=== PATIENT | female | born 1945 | race Caucasian/White ===

== ENCOUNTER 2017-07-19 13:22 | Emergency (ER) | payer MEDICARE ==
[~2017-07-19 13:22] MED LIST: ADVAIR DISKUS IH; ARMOUR THYROID PO; ASPI-1197 PO; CHOL100040 PO; FEXO-59 PO; GABA-318 PO; HYDR-2534 PO; HYDR-3971 PO; LUBI24CA2 PO; POLY17PO4 PO; RALO60TA PO; UBID200C18 PO; ZOLP10TA2 PO
[2017-07-19 13:46] LABS: BASOPHILS % (AUTO) 0.3 % (0.0-5.0); EOSINOPHILS % (AUTO) 1.3 % (0.0-8.0); HEMATOCRIT 36.2 % (36-48); LYMPHOCYTES % (AUTO) 10.3 % (21.0-51.0); MEAN CORPUSCULAR HEMOGLOBIN 29.8 pg (27.0-33.0); MEAN CORPUSCULAR HGB CONC 33.8 g/dL (32.0-36.0); MEAN CORPUSCULAR VOLUME 88.3 fL (79-99); MONOCYTES % (AUTO) 7.6 % (3.0-13.0); NEUTROPHILS % (AUTO) 80.5 % (40.0-77.0); NUCLEATED RED BLOOD CELLS 0.1 % (0.0-0.19); PLATELET COUNT (AUTO) 389 K/uL (130-400); RED CELL DISTRIBUTION WIDTH 14.1 % (11.0-15.5); WHITE BLOOD COUNT (AUTO) 15.1 K/uL (4.8-10.8)
[2017-07-19 14:00] LABS: INR 0.93 (0.85-1.15); PARTIAL THROMBOPLASTIN TIME 25.1 SEC (26.3-35.5); PROTHROMBIN TIME 9.8 SEC (9.6-11.6)
[2017-07-19 14:02] LABS: POTASSIUM 3.8 mmol/L (3.5-5.1)
[2017-07-19] MEDS ORDERED: DIAZEPAM 5 MG TABLET ONE (14:10)
[2017-07-19 14:15] LABS: ALBUMIN 3.5 g/dL (3.5-5.0); BILIRUBIN,TOTAL 0.3 mg/dL (0.2-1.0); CREATINE KINASE MB 1.6 ng/mL (0.5-3.6)
[2017-07-19] MEDS ORDERED: ASPIRIN 325 MG TABLET ONE (14:15)
[2017-07-19] MEDS ORDERED: MORPHINE SULFATE 4 MG/1ML SYG ONE (15:47)
== END 2017-07-19 16:49 | disposition home or self-care (01) ==
LOC: EDH 13:22
DX: G89.29 Other chronic pain (principal); M25.511 Pain in right shoulder; R55 Syncope and collapse; R07.9 Chest pain, unspecified; E07.9 Disorder of thyroid, unspecified; M81.0 Age-related osteoporosis without current pathological fracture; Z88.1 Allergy status to other antibiotic agents
CPT/HCPCS: 36415; 70450; 71045; 80053; 82550; 82553; 83874; 83880; 84484; 85025; 85610; 85730; 93005; 94761; 96374; 99285; J2270

== ENCOUNTER → 2018-06-02 | Outpatient (CLI) | payer MEDICARE ==
[~2018-06-02] MED LIST changes: +CYCL10 PO; +DULO30CA51 PO; -FEXO-59 PO; -GABA-318 PO; +GABA600T10 PO; +SENN8.6T32 PO
== END | disposition home or self-care (01) ==
LOC: SHCH 11:49
PROVIDERS: ATTEND Internal Medicine Cardiovascular Disease
DX: I10 Essential (primary) hypertension (principal)
CPT/HCPCS: 93306

== ENCOUNTER → 2018-06-24 | Outpatient (CLI) | payer MEDICARE ==
[~2018-06-24] MED LIST changes: +ASPI-1181 PO; -ASPI-1197 PO; -CYCL10 PO; +CYCL10TA7 PO; +[UNRECOGNIZED DRUG - OTHER] IV
== END | disposition home or self-care (01) ==
LOC: OIH 13:51
PROVIDERS: ATTEND Neurological Surgery
DX: M47.812 Spondylosis without myelopathy or radiculopathy, cervical region (principal)
CPT/HCPCS: 72040

== ENCOUNTER → 2018-07-18 | Outpatient (CLI) | payer MEDICARE | END | disposition home or self-care (01) | LOC: OIH 08:08 | PROVIDERS: ATTEND Neurological Surgery | DX: M47.812 Spondylosis without myelopathy or radiculopathy, cervical region (principal); M43.22 Fusion of spine, cervical region; M85.88 Other specified disorders of bone density and structure, other site | CPT/HCPCS: 72040 ==

== ENCOUNTER 2020-09-07 06:31 | Day surgery (SDC) | payer MEDICARE ==
[2020-09-06 15:06] VITALS: BP 114/61
[~2020-09-07] VITALS: Ht 165.1 cm; Wt 60.4 kg
[2020-09-07] VITALS (14 sets, daily range): BP systolic 97–120; BP diastolic 53–73
[~2020-09-07 06:31] MED LIST changes: -ADVAIR DISKUS IH; -ARMOUR THYROID PO; -ASPI-1181 PO; +ASPI-1443 PO; -CHOL100040 PO; -DULO30CA51 PO; +DULO30CA52 PO; -HYDR-2534 PO; -LUBI24CA2 PO; -POLY17PO4 PO; -SENN8.6T32 PO; -[UNRECOGNIZED DRUG - OTHER] IV
[2020-09-07] MEDS ORDERED: LACTATED RINGERS 1000ML 1,000 ML IV ONE (06:57)
[2020-09-07] MEDS ORDERED: CEFAZOLIN SODIUM 1 GM VIAL ONE (06:57)
[2020-09-07] MEDS ORDERED: BUPIVACAINE/PF 0.5% 10ML VIAL ONE (07:00)
[2020-09-07] MEDS ORDERED: VANCOMYCIN 1GM+NS 250ML 250 ML IV ONE (07:56)
[2020-09-07] MEDS ORDERED: IOPAMIDOL 10 ML VIAL ONE (07:59)
[2020-09-07] MEDS ORDERED: MIDAZOLAM HCL 1 MG/ML 2ML VIAL ONE (08:04)
[2020-09-07] MEDS ORDERED: FENTANYL CITRATE PF 50 MCG/1 ML 2ML VIAL ONE (08:04)
[2020-09-07] MEDS ORDERED: PROPOFOL 10 MG/ML 20ML VIAL IV ONE (08:09)
== END 2020-09-07 10:00 | disposition home or self-care (01) ==
LOC: DAH 06:31
PROVIDERS: ATTEND Orthopaedic Surgery
DX: M16.12 Unilateral primary osteoarthritis, left hip (principal); Z20.822 Contact with and (suspected) exposure to COVID-19; M25.552 Pain in left hip; G89.29 Other chronic pain; G47.30 Sleep apnea, unspecified; E03.9 Hypothyroidism, unspecified; Z90.49 Acquired absence of other specified parts of digestive tract; Z98.890 Other specified postprocedural states; Z90.710 Acquired absence of both cervix and uterus; Z82.49 Family history of ischemic heart disease and other diseases of the circulatory system; Z88.8 Allergy status to other drugs, medicaments and biological substances; Z79.899 Other long term (current) drug therapy
CPT/HCPCS: 20610; 73503; 77002; 87426; A4215; A4222; A4223 ×2; A4663; A4930; J1030; J2250; J2704; J3010; J3370; J3490; J7120; Q9966; J0690

== ENCOUNTER 2020-09-20 16:21 | Emergency (ER) | payer MEDICARE ==
[2020-09-20 17:04] LABS: BASOPHILS % (AUTO) 0.5 % (0.0-5.0); EOSINOPHILS % (AUTO) 3.6 % (0.0-8.0); HEMATOCRIT 38.1 % (36-48); LYMPHOCYTES % (AUTO) 24.3 % (21.0-51.0); MEAN CORPUSCULAR HEMOGLOBIN 29.8 pg (27.0-33.0); MEAN CORPUSCULAR HGB CONC 32.8 g/dL (32.0-36.0); MEAN CORPUSCULAR VOLUME 90.9 fL (79-99); MONOCYTES % (AUTO) 9.3 % (3.0-13.0); NEUTROPHILS % (AUTO) 62.2 % (40.0-77.0); PLATELET COUNT (AUTO) 295 K/uL (130-400); RED BLOOD CELL COUNT(AUTO) 4.19 MIL/uL (4.00-5.50); RED CELL DISTRIBUTION WIDTH 13.3 % (11.0-15.5); WHITE BLOOD COUNT (AUTO) 7.5 K/uL (4.8-10.8)
[2020-09-20 17:15] LABS: CREATININE 0.9 mg/dL (0.5-1.5); POTASSIUM 3.5 mmol/L (3.5-5.1)
[2020-09-20 17:17] LABS: INR 0.98 (0.85-1.15); PROTHROMBIN TIME 10.7 SEC (9.6-11.6)
[2020-09-20 17:19] LABS: PARTIAL THROMBOPLASTIN TIME 26.7 SEC (26.3-35.5)
[2020-09-20 17:20] LABS: ALBUMIN 3.7 g/dL (3.5-5.0); BILIRUBIN,TOTAL 0.3 mg/dL (0.2-1.0); TOTAL PROTEIN, SERUM 7.3 g/dL (6.0-8.3)
[2020-09-20] MEDS ORDERED: MORPHINE SULFATE 4 MG/1ML SYG ONE (18:15)
== END 2020-09-20 19:44 | disposition home or self-care (01) ==
LOC: EDH 16:21
DX: S00.83XA Contusion of other part of head, initial encounter (principal); S50.12XA Contusion of left forearm, initial encounter; G89.29 Other chronic pain; M25.552 Pain in left hip; M79.7 Fibromyalgia; M81.0 Age-related osteoporosis without current pathological fracture; E07.9 Disorder of thyroid, unspecified; M19.90 Unspecified osteoarthritis, unspecified site; Z88.1 Allergy status to other antibiotic agents; Z90.49 Acquired absence of other specified parts of digestive tract; Z90.710 Acquired absence of both cervix and uterus; Z98.890 Other specified postprocedural states; W01.0XXA Fall on same level from slipping, tripping and stumbling without subsequent striking against object, initial encounter; Y93.89 Activity, other specified; Y92.89 Other specified places as the place of occurrence of the external cause; Y99.8 Other external cause status
CPT/HCPCS: 36415; 70450; 72100; 72125; 74176; 80053; 84484; 85025; 85610; 85730; 96372; 99285; J2270

== ENCOUNTER 2021-08-11 16:32 | Emergency (ER) | payer MEDICARE ==
[~2021-08-11] VITALS: Ht 165.1 cm; Wt 60.8 kg
[~2021-08-11 16:32] MED LIST changes: +CYCL-309 PO; -CYCL10TA7 PO
[2021-08-11 16:35] VITALS: BP 134/79
[2021-08-11] MEDS ORDERED: MORPHINE 4 MG SYG IM PRN (18:00)
[2021-08-11] MEDS ORDERED: CYCL10TA16 PO (19:15)
== END 2021-08-11 19:28 | disposition home or self-care (01) ==
LOC: EDH 16:32
DX: M25.511 Pain in right shoulder (principal); M19.90 Unspecified osteoarthritis, unspecified site; M41.9 Scoliosis, unspecified; M79.7 Fibromyalgia; Z79.82 Long term (current) use of aspirin; Z88.1 Allergy status to other antibiotic agents; Z88.2 Allergy status to sulfonamides; Z88.8 Allergy status to other drugs, medicaments and biological substances; Z90.49 Acquired absence of other specified parts of digestive tract; Z98.1 Arthrodesis status
CPT/HCPCS: 72040; 73030; 96372; 99284; J2270

== ENCOUNTER → 2021-08-22 | Outpatient (CLI) | payer MEDICARE ==
[~2021-08-22] MED LIST changes: +CYCL10TA16 PO
== END | disposition home or self-care (01) ==
LOC: RAH 10:50
PROVIDERS: ATTEND Orthopaedic Surgery
DX: M50.20 Other cervical disc displacement, unspecified cervical region (principal); Z98.1 Arthrodesis status
CPT/HCPCS: 72141

== ENCOUNTER 2021-09-16 04:32 | Emergency (ER) | payer MEDICARE ==
[~2021-09-16] VITALS: Ht 162.6 cm; Wt 61.2 kg
[~2021-09-16 04:32] MED LIST changes: +ASPI-1197 PO; +HYDR-4068 PO; +HYDR50TA PO; +LUBI24CA2 PO; +POLY17PO4 PO; +SENN8.6T32 PO; +THYR15TA PO; +UBID100C10 PO
[2021-09-16] MEDS ORDERED: KETOROLAC 15MG/ML VIAL (15MG/ML) IV ONE (05:00)
[2021-09-16] MEDS ORDERED: HYDROMORPHONE 1 MG INJ IVP ONE (05:00)
[2021-09-16 06:00] VITALS: BP 121/65
[2021-09-16] MEDS ORDERED: SOLU-MEDROL 40MG VIAL IVP ONE (06:00)
[2021-09-16] MEDS ORDERED: PRED20TA3 PO (06:13)
== END 2021-09-16 06:25 | disposition home or self-care (01) ==
LOC: EDH 04:32
DX: M54.12 Radiculopathy, cervical region (principal); E03.9 Hypothyroidism, unspecified; M19.90 Unspecified osteoarthritis, unspecified site; M79.7 Fibromyalgia; Z79.1 Long term (current) use of non-steroidal anti-inflammatories (NSAID); Z79.52 Long term (current) use of systemic steroids; Z88.1 Allergy status to other antibiotic agents; Z88.2 Allergy status to sulfonamides; Z88.8 Allergy status to other drugs, medicaments and biological substances; Z90.49 Acquired absence of other specified parts of digestive tract
CPT/HCPCS: 96374; 96375; 99284; J1170; J1885; J2920

== ENCOUNTER 2022-05-26 11:06 | Emergency (ER) | payer MEDICARE ==
[~2022-05-26] VITALS: Ht 162.6 cm; Wt 68.0 kg
[~2022-05-26 11:06] MED LIST changes: +PRED20TA3 PO
[2022-05-26] MEDS ORDERED: MORPHINE 4 MG SYG IM ONE (12:30)
[2022-05-26] MEDS ORDERED: KETOROLAC 60 MG VIAL (30MG/ML) IM ONE (12:30)
[2022-05-26] MEDS ORDERED: TETANUS/DIPHTHERIA TOXOID [ADULT] 0.5 ML VIAL IM ONE (12:30)
[2022-05-26] MEDS ORDERED: IBUP-2070 PO (13:53)
[2022-05-26] MEDS ORDERED: D-ME118S47 PO (13:53)
[2022-05-26 14:19] VITALS: BP 122/74
== END 2022-05-26 14:32 | disposition home or self-care (01) ==
LOC: EDH 11:06
DX: S80.01XA Contusion of right knee, initial encounter (principal); S80.02XA Contusion of left knee, initial encounter; S80.211A Abrasion, right knee, initial encounter; S80.212A Abrasion, left knee, initial encounter; M25.551 Pain in right hip; M54.9 Dorsalgia, unspecified; Z88.1 Allergy status to other antibiotic agents; Z88.2 Allergy status to sulfonamides; Z88.8 Allergy status to other drugs, medicaments and biological substances; Z79.899 Other long term (current) drug therapy; Z79.82 Long term (current) use of aspirin; W01.0XXA Fall on same level from slipping, tripping and stumbling without subsequent striking against object, initial encounter; Y93.01 Activity, walking, marching and hiking; Y92.89 Other specified places as the place of occurrence of the external cause; Y99.8 Other external cause status
CPT/HCPCS: 99284; 71045; 90714; 73521; 73560; 72100; 96372 ×2; 90471; 72170; J2270; J1885

== ENCOUNTER 2023-03-19 14:02 | Emergency (ER) | payer MEDICARE ==
[~2023-03-19] VITALS: Ht 160 cm; Wt 59.0 kg
[~2023-03-19 14:02] MED LIST changes: +BROM118S48 PO; +IBUP-2070 PO; +RALO60 PO; -RALO60TA PO
[2023-03-19] MEDS ORDERED: IBUP-2070 PO (16:54)
[2023-03-19 17:01] VITALS: BP 116/80; PULSE 60; RESP 16; O2SAT 97
== END 2023-03-19 17:13 | disposition home or self-care (01) ==
LOC: EDH 14:02
DX: S92.351A Displaced fracture of fifth metatarsal bone, right foot, initial encounter for closed fracture (principal); M79.671 Pain in right foot; M79.661 Pain in right lower leg; M25.561 Pain in right knee; M25.551 Pain in right hip; I10 Essential (primary) hypertension; M79.7 Fibromyalgia; E03.9 Hypothyroidism, unspecified; Z88.2 Allergy status to sulfonamides; Z88.8 Allergy status to other drugs, medicaments and biological substances; Z79.899 Other long term (current) drug therapy; Z90.710 Acquired absence of both cervix and uterus; Z90.49 Acquired absence of other specified parts of digestive tract; W18.30XA Fall on same level, unspecified, initial encounter; Y93.89 Activity, other specified; Y92.89 Other specified places as the place of occurrence of the external cause; Y99.8 Other external cause status
CPT/HCPCS: 72190; 73562; 73590; 73630; 93971